=== PATIENT | male | born 1990 ===

== ENCOUNTER 2017-02-11 17:49 | Emergency (ER) ==
[~2017-02-11] VITALS: Ht 172.7 cm; Wt 66.6 kg
[2017-02-11 17:53] VITALS: TEMP 36.9; Ht 172.7 cm; Wt 66.6 kg
[2017-02-11 20:39] VITALS: BP 123/90; O2SAT 99
[2017-02-11 20:40] VITALS: PULSE 56
== END 2017-02-11 21:08 | disposition left against medical advice (07) ==
LOC: C.EDB 17:51
DX: R07.9 Chest pain, unspecified (principal)